=== PATIENT | female | born 1950 | race American Indian/Alaskan Native ===

== ENCOUNTER 2018-10-16 17:31 | Emergency (ER) | payer OTHER ==
--- NOTE | 2018-10-16 18:01 | Event Note ---
ED Screening Note Date of service: 10/16/18 Time: 18:00 ED Screening Note: 68 y/o female comes in complaining of dizziness. BS 110. This initial assessment/diagnostic orders/clinical plan/treatment(s) is/are subject to change based on patients health status, clinical progression and re-assessment by fellow clinical providers in the ED. Further treatment and workup at subsequent clinical providers discretion. Patient/guardian urged not to elope from the ED as their condition may be serious if not clinically assessed and managed. Initial orders include:
[2018-10-16 19:28] LABS: Basophils % (Auto) 0.9 % (0.0-1.8); Eosinophils # (Auto) 0.2 K/mm3 (0.0-0.4); Eosinophils % (Auto) 3.5 % (0.0-4.3); Hematocrit 36.2 % (30.3-42.9); Hemoglobin 12.4 gm/dl (10.1-14.3); Lymphocytes # (Auto) 1.6 K/mm3 (1.2-5.4); Lymphocytes % (Auto) 36.2 % (13.4-35.0); Mean Corpuscular HGB Conc 34 % (30-34); Mean Corpuscular Volume 111 fl (79-97); Monocytes # (Auto) 0.4 K/mm3 (0.0-0.8); Monocytes % (Auto) 8.7 % (0.0-7.3); Platelet Count 287 K/mm3 (140-440); Red Blood Count 3.27 M/mm3 (3.65-5.03); Red Cell Distribution Width 15.8 % (13.2-15.2)
[2018-10-16 19:40] LABS: Alanine Aminotransferase 20 units/L (7-56); Albumin 4.4 g/dL (3.9-5); BUN/Creatinine Ratio 20; Blood Urea Nitrogen 10 mg/dL (7-17); Calcium 9.5 mg/dL (8.4-10.2); Hemolysis Index 7
[2018-10-16 20:14] LABS: Bilirubin,Urine NEG (Negative); Blood,Urine NEG (Negative); Color,Urine Yellow (Yellow); Mucus,Urine FEW /HPF; Urobilinogen,Urine < 2.0 mg/dL (<2.0); WBC,Urine < 1.0 /HPF (0.0-6.0)
[2018-10-16] MEDS ORDERED: CATAPRES PO ONE (20:15)
[2018-10-16] MEDS ORDERED: ANTIVERT PO ONE (20:15)
--- NOTE | 2018-10-16 20:20 | Emergency Department Report ---
HPI - General Chief Complaint: Dizziness Time Seen by Provider: 10/16/18 20:03 - HPI HPI: Room 8 The patient is a 68-year-old female presenting with chief complaint of dizziness. The patient states she has had a left-sided headache for approximately 1 week in addition to pain in her left ear. The patient states today while at a store she began to feel as though everything was spinning. The patient states she sat down and her symptoms began to "calm down." Patient in to the family member home and came to the ED. Patient is to nausea but denies vomiting. Patient denies history of fever. Patient also complains of low back pain with movement for the past 2 weeks. Patient states she feels slightly dizzy now Location: Head, see above Duration: [See above] Quality:, Vertiginous Severity: 01/26 Modifying factors: [see above] Context: [see above] Mode of transportation: The patient drove herself to the emergency department and there are no visitors present ED Past Medical Hx - Past Medical History Previous Medical History?: No Hx Hypertension: Yes Additional medical history: High cholesterol. Acid reflux. Chronic neck pain - Surgical History Additional Surgical History: NECK SURGERY C4C5 - Family History Family history: no significant - Social History Smoking Status: Former Smoker (none 40 years) Substance Use Type: None (denies illicit drug use) - Medications Home Medications: Home Medications Medication Instructions Recorded Confirmed Last Taken Type Aspirin EC 81 mg PO QDAY #30 tablet. 01/28/14 Unknown Rx Lisinopril [Zestril TAB] 40 mg PO QDAY #30 tablet 01/28/14 Unknown Rx Omeprazole Magnesium [Prilosec Otc] 20 mg PO QDAY #30 tablet. 01/28/14 Unknown Rx Pravastatin [Pravachol] 20 mg PO QHS #30 tablet 01/28/14 Unknown Rx Aspirin [Aspirin BABY CHEW TAB] 81 mg PO QDAY #30 tab.chew 05/22/15 Unknown Rx Omeprazole Magnesium [PriLOSEC Otc] 20 mg PO QDAY #30 tablet. 05/22/15 Unknown Rx Pravastatin [Pravachol] 20 mg PO QHS #30 tablet 05/22/15 Unknown Rx Cyclobenzaprine [Flexeril] 10 mg PO TID PRN #15 tablet 01/01/16 Unknown Rx Lisinopril [Zestril TAB] 40 mg PO QDAY #30 tablet 01/01/16 Unknown Rx traMADol [Ultram 50 MG tab] 50 mg PO Q4HR PRN #20 tablet 01/01/16 Unknown Rx HYDROcodone/APAP 5-325 [[place] 1 - 2 each PO Q6HR PRN #14 tablet 10/16/18 Unknown Rx 5/325] Meclizine [Antivert] 25 mg PO TID PRN #20 tablet 10/16/18 Unknown Rx amLODIPine [Norvasc] 5 mg PO DAILY #90 tab 10/16/18 Unknown Rx ED Review of Systems ROS: Stated complaint: DIZZY/LT EAR PAIN/RAPID HEART BEAT Other details as noted in HPI Constitutional: denies: fever Eyes: denies: eye pain ENT: denies: throat pain Respiratory: no symptoms reported Cardiovascular: denies: chest pain Endocrine: no symptoms reported Gastrointestinal: nausea. denies: vomiting Genitourinary: denies: dysuria Musculoskeletal: back pain Neurological: headache, vertigo Physical Exam - Physical Exam Vital Signs: Vital Signs 10/16/18 10/16/18 17:49 17:52 Temperature 98.5 F Pulse Rate 95 H 82 Respiratory 16 Rate Blood Pressure 222/114 Blood Pressure 215/88 [Right] O2 Sat by Pulse 98 Oximetry Physical Exam: GENERAL: The patient is well-developed well-nourished female lying on stretcher no pain to be in acute distress. [] HEENT: Normocephalic. Atraumatic. Extraocular motions are intact. Patient has moist mucous membranes. No nystagmus noted NECK: Supple. No meningitic signs are noted. Trachea midline CHEST/LUNGS: Clear to auscultation. There is no respiratory distress noted. HEART/CARDIOVASCULAR: Regular. There is no tachycardia. There is no gallop rub or murmur. ABDOMEN: Abdomen is soft, nontender. Patient has normal bowel sounds. There is no abdominal distention. SKIN: There is no rash. There is no edema. There is no diaphoresis. NEURO: The patient is awake, alert, and oriented. The patient is cooperative. The patient has no focal neurologic deficits. The patient has normal speech. Cranial nerves II through XII grossly intact, no drift. No dysmetria noted within her to nose bilaterally MUSCULOSKELETAL: There is no evidence of acute injury. ED Course Vital Signs 10/16/18 10/16/18 17:49 17:52 Temperature 98.5 F Pulse Rate 95 H 82 Respiratory 16 Rate Blood Pressure 222/114 Blood Pressure 215/88 [Right] O2 Sat by Pulse 98 Oximetry - Reevaluation(s) Reevaluation #1: 10/16/18 22:20 Patient states she is feeling improved ED Medical Decision Making - Lab Data Result diagrams: 10/16/18 18:35 10/16/18 18:35 Laboratory Tests 10/16/18 10/16/18 10/16/18 18:07 18:35 18:35 WBC 4.4 L RBC 3.27 L Hgb 12.4 Hct 36.2 MCV 111 H MCH 38 H MCHC 34 RDW 15.8 H Plt Count 287 Lymph % (Auto) 36.2 H [place] % (Auto) 8.7 H Eos % (Auto) 3.5 Baso % (Auto) 0.9 Lymph # 1.6 [place] # 0.4 Eos # 0.2 Baso # 0.0 Seg Neutrophils % 50.7 Seg Neutrophils # 2.3 Sodium 142 Potassium 4.1 Chloride 105.7 Carbon Dioxide 24 Anion Gap 16 BUN 10 Creatinine 0.5 L Estimated GFR > 60 BUN/Creatinine Ratio 20 Glucose 101 H POC Glucose 110 H Calcium 9.5 Total Bilirubin 0.30 AST 23 ALT 20 Alkaline Phosphatase 80 Total Protein 7.5 Albumin 4.4 Albumin/Globulin Ratio 1.4 Urine Color Urine Turbidity Urine pH Ur Specific [place] Urine Protein Urine Glucose (UA) Urine Ketones Urine Blood Urine Nitrite Urine Bilirubin Urine Urobilinogen Ur Leukocyte Esterase Urine WBC (Auto) Urine RBC (Auto) U Epithel Cells (Auto) Urine Mucus 10/16/18 20:00 WBC RBC Hgb Hct MCV MCH MCHC RDW Plt Count Lymph % (Auto) [place] % (Auto) Eos % (Auto) Baso % (Auto) Lymph # [place] # Eos # Baso # Seg Neutrophils % Seg Neutrophils # Sodium Potassium Chloride Carbon Dioxide Anion Gap BUN Creatinine Estimated GFR BUN/Creatinine Ratio Glucose POC Glucose Calcium Total Bilirubin AST ALT Alkaline Phosphatase Total Protein Albumin Albumin/Globulin Ratio Urine Color Yellow Urine Turbidity Slightly-cloudy Urine pH 6.0 Ur Specific [place] 1.026 Urine Protein 30 mg/dl Urine Glucose (UA) Neg Urine Ketones Neg Urine Blood Neg Urine Nitrite Neg Urine Bilirubin Neg Urine Urobilinogen < 2.0 Ur Leukocyte Esterase Neg Urine WBC (Auto) < 1.0 Urine RBC (Auto) 3.0 U Epithel Cells (Auto) 5.0 Urine Mucus Few - EKG Data -: EKG Interpreted by Me EKG shows normal: sinus rhythm Rate: normal - EKG Data Interpretation: other (single PVC. No ischemic changes seen) - Radiology Data Radiology results: report reviewed (CT head), image reviewed (CT head, lumbar spine x-ray, sacral coccyx x-ray) interpreted by me: lumbar spine x-ray- no acute fracture seen sacral coccyx x-ray- no acute fracture [facility] [address] [place] [address] Cat Scan Report Signed Patient: EVA POST MR#: [id number] : 1950 Acct:[id number] Age/Sex: 68 / F ADM Date: 10/16/18 Loc: ED Att ending Dr: Ordering Physician: GARTH COCHRAN MD Date of Service: 10/16/18 Procedure(s): CT head/brain wo con Accession Number(s): [id number] cc: GARTH COCHRAN MD PROCEDURE: CT HEAD/BRAIN WO CON TECHNIQUE: Computerized tomography of the head was performed without contrast material. HISTORY: hypertension, headache, vertigo COMPARISONS: Prior CT scan of the brain 05/22/2015 . FINDINGS: Brain: There is no evidence of intracranial hemorrhage. No parenchymal hemorrhage is seen. No mass lesions or mass effect is identified. No abnormal extra-axial fluid collections or masses are seen. There is some decreased density seen in the periventricular white matter without mass effect. This is fairly symmetric and does not exhibit any mass effect consistent with gliosis probably on the basis of microvascular disease or white matter changes of aging. Ventricles: The ventricles, sulcal pattern and fissures are prominent consistent with atrophy. Bone Windows: No evidence of fracture. Paranasal sinuses: Visualized portions are clear. Mastoid air cells: Clear. IMPRESSION: No acute abnormalities identified. There is evidence of mild atrophy and gliosis. This document is electronically signed by Wenceslao Byrd MD., October 16 2018 09:37:58 PM ET Transcribed By: DFN Dictated By: WENCESLAO BYRD MD Electronically Authenticated By: WENCESLAO BYRD MD Signed Date/Time: 10/16/182139 DD/ 09 TD/TT: 10/16/182109 - Differential Diagnosis hypertensive urgency, CH, vertigo Critical care attestation.: If time is entered above; I have spent that time in minutes in the direct care of this critically ill patient, excluding procedure time. ED Disposition Clinical Impression: Uncontrolled hypertension, Vertigo Disposition: - TO HOME OR SELFCARE Is pt being admited?: No Does the pt Need Aspirin: No Condition: Stable Instructions: Hypertension (ED), Vertigo (ED) Additional Instructions: Return to the emergency department immediately should you develop worsening symptoms, fever, inability to tolerate food or liquid or any other concerns. Prescriptions: Meclizine [Antivert] 25 mg PO TID PRN #20 tablet PRN Reason: Vertigo HYDROcodone/APAP 5-325 [[place] 5/325] 1 - 2 each PO Q6HR PRN #14 tablet PRN Reason: Pain amLODIPine [Norvasc] 5 mg PO DAILY #90 tab Referrals: MONICA FINE MD [Primary Care Provider] - 3-5 Days (Dr. Fine is a primary physician. Please follow up with him to be established as a patient) MICHAEL ROSADO MD [Staff Physician] - 3-5 Days (Dr. Rosado is an professor of journalism (ear nose and throat doctor). Please follow up with her for further evaluation) Time of Disposition: 22:22
--- NOTE | 2018-10-16 21:40 | Cat Scan Report ---
PROCEDURE: CT HEAD/BRAIN WO CON TECHNIQUE: Computerized tomography of the head was performed without contrast material. HISTORY: hypertension, headache, vertigo COMPARISONS: Prior CT scan of the brain 05/22/2015 . FINDINGS: Brain: There is no evidence of intracranial hemorrhage. No parenchymal hemorrhage is seen. No mass lesions or mass effect is identified. No abnormal extra-axial fluid collections or masses are seen. There is some decreased density seen in the periventricular white matter without mass effect. This i s fairly symmetric and does not exhibit any mass effect consistent with gliosis probably on the basis of microvascular disease or white matter changes of aging. Ventricles: The ventricles, sulcal pattern and fissures are prominent consistent with atrophy. Bone Windows: No evidence of fracture. Paranasal sinuses: Visualized portions are clear. Mastoid air cells: Clear. IMPRESSION: No acute abnormalities identified. There is evidence of mild atrophy and gliosis. This document is electronically signed by Wenceslao Huddleston MD., October 16 2018 09:37:58 PM ET
[2018-10-16] MEDS ORDERED: TORADOL IM ONE (22:02)
[2018-10-16 22:21] VITALS: BP 166/91
--- NOTE | 2018-10-16 22:32 | XRay Report ---
PROCEDURE: XR SPINE SACRUM/COCCYX 2+V HISTORY: low back pain FINDINGS: AP and lateral views of the sacrum and coccyx were acquired. No fracture is seen in the sac rum or coccyx. No destructive lesion is identified. IMPRESSION: No fracture is seen in the sacrum or coccyx This document is electronically signed by Eligio Olivares MD., October 16 2018 10:30:50 PM ET
--- NOTE | 2018-10-16 22:33 | XRay Report ---
PROCEDURE: XR SPINE LUMBOSACRAL 2-3V HISTORY: low back pain FINDINGS: AP and lateral views of the lumbar spine were acquired. There is 0.4 cm degenerative yousif listhesis of L4 on L5. No fracture is seen in the lumbar spine. The intervertebral disc space heights appear preserved. IMPRESSION: Grade 1 degenerative anterolisthesis of L4 on L5 No fracture is seen in the lumbar spine This document is electronically signed by Eligio Olivares MD., October 16 2018 10:31:46 PM ET
== END 2018-10-16 22:45 | disposition home or self-care (01) ==
LOC: ED 17:31
DX: I10 Essential (primary) hypertension (principal); R42 Dizziness and giddiness; E78.00 Pure hypercholesterolemia, unspecified; G89.29 Other chronic pain; M54.2 Cervicalgia; Z87.891 Personal history of nicotine dependence; Z79.82 Long term (current) use of aspirin; Z79.899 Other long term (current) drug therapy
CPT/HCPCS: 36415; 70450; 72100; 72220; 80053; 81001; 82962; 85025; 93005; 93010; 96372; 99284; J1885; 99285

== ENCOUNTER 2019-01-13 18:31 | Emergency (ER) | payer OTHER ==
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
[2019-01-13] MEDS ORDERED: NAPROXEN 500 MG TAB PO ONE (21:21)
[2019-01-13] MEDS ORDERED: tiZANidine TAB 4 MG TAB PO ONE (21:21)
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
[2019-01-13] MEDS ORDERED: KETOROLAC 30 MG/1 ML INJ IM ONE (22:42)
[2019-01-13 23:49] VITALS: BP 151/81
== END 2019-01-13 22:55 | disposition home or self-care (01) ==
LOC: ED 18:31
DX: M54.2 Cervicalgia (principal); M54.5 Low back pain; R51 Headache; E78.00 Pure hypercholesterolemia, unspecified; I10 Essential (primary) hypertension; V89.2XXA Person injured in unspecified motor-vehicle accident, traffic, initial encounter; Y93.89 Activity, other specified; Y92.410 Unspecified street and highway as the place of occurrence of the external cause; Y99.8 Other external cause status
CPT/HCPCS: 72040; 72070; 72100

== ENCOUNTER 2021-09-29 12:57 | Outpatient (CLI) | payer MEDICARE ==
--- NOTE | 2021-09-29 15:44 | XRay Report ---
Left knee 3 views INDICATION: Pain FINDINGS: Advanced tricompartmental degenerative change. Significant joint space narrowing is seen th roughout with marginal osteophytes. Advanced chondrosis and cartilage loss in the medial compartment Signer Name: Cipriano Barksdale MD Signed: 09/29/2021 3:39 PM Workstation Name: [id number]-[employer]
== END 2021-09-29 12:58 | disposition home or self-care (01) ==
LOC: XRAY 12:57
PROVIDERS: ATTEND Internal Medicine
DX: M17.12 Unilateral primary osteoarthritis, left knee (principal); M25.762 Osteophyte, left knee

== ENCOUNTER 2021-10-07 00:34 | Emergency (ER) | payer MEDICARE ==
[2021-10-07 00:40] VITALS: BP 150/91
== END 2021-10-07 11:35 | disposition left against medical advice (07) ==
LOC: ED 00:34
DX: R51.9 Headache, unspecified (principal); Z53.21 Procedure and treatment not carried out due to patient leaving prior to being seen by health care provider

== ENCOUNTER 2021-12-25 08:22 | Inpatient (IN) | payer OTHER, MEDICARE ==
[2021-12-23 12:26] LABS: Hematocrit 39.3 % (30.3-42.9); Hemoglobin 13.2 gm/dl (10.1-14.3); Mean Corpuscular HGB Conc 34 % (30-34); Mean Corpuscular Volume 92 fl (79-97); Platelet Count 237 K/mm3 (140-440); Red Blood Count 4.26 M/mm3 (3.65-5.03); Red Cell Distribution Width 16.1 % (13.2-15.2)
[2021-12-23 12:38] LABS: Blood Urea Nitrogen 11 mg/dL (7-17); Calcium 9.7 mg/dL (8.4-10.2); Hemolysis Index 2
[2021-12-23 12:42] LABS: BUN/Creatinine Ratio 22
--- NOTE | 2021-12-23 12:50 | Anesthesia Consultation ---
Anesthesia Consult and Med Hx Date of service: 12/25/21 - Airway Anesthetic Teeth Evaluation: Poor, Chipped (Missing) ROM Head & Neck: Adequate (S/P ACDF) Mental/Hyoid Distance: Adequate Mallampati Class: Class II Intubation Access Assessment: Good - Pre-Operative Health Status ASA Pre-Surgery Classification: ASA3 Proposed Anesthetic Plan: General (Pt req) Nerve Block: AC - Pulmonary Hx Smoking: No Hx Sleep Apnea: No - Cardiovascular System Hx Hypertension: Yes Hx Pacemaker: No Hx Internal Defibrillator: No - Central Nervous System Hx Back Pain: Yes (Spinal stenosis) Hx Psychiatric Problems: Yes (Anxiety) - Gastrointestinal Hx Gastroesophageal Reflux Disease: No - Hematic Hx Anemia: Yes (PAst hx) Hx Sickle Cell Disease: No - Other Systems Hx Cancer: No Hx Obesity: Yes - Additional Comments Anesthesia Medical History Comments: Pt had ECHO and NST last year and reports they are normal. Will attempt to get copies. Possible lupus
[~2021-12-25 08:22] MED LIST: ACETAMINOPHEN 500 MG TAB PO ONE; BUPIVACAINE/PF (0.5%) 5 MG/1 ML 10 ML VIAL INFILTRATI ONE; CELECOXIB 200 MG CAP PO NR; GABAPENTIN 300 MG CAP PO NR; KETOROLAC 30 MG/1 ML INJ ONE; MAGNESIUM OXIDE 400 MG TAB PO ONE; MIDAZOLAM 2 MG/2 ML INJ IV NR; MORPHINE 10 MG/1 ML INJ ONE; SODIUM CHLORIDE 0.9% 100 ML ONE; SODIUM CHLORIDE 0.9% 50 ML ONE; TRANEXAMIC ACID 1,000 MG/10 ML ONE; fentaNYL 100 MCG/2 ML INJ IV ONE
[2021-12-25] MEDS: LACTATED RINGERS 1,000 ML IV SCH ×2 (09:30→15:50)
[2021-12-25] MEDS ORDERED: MAGNESIUM OXIDE 400 MG TAB PO ONE (09:30)
[2021-12-25] MEDS ORDERED: ACETAMINOPHEN 500 MG TAB ONE (09:30)
[2021-12-25] MEDS ORDERED: fentaNYL 100 MCG/2 ML INJ ONE ×2 (09:31→10:59)
[2021-12-25] MEDS ORDERED: dexAMETHasone 4 MG/ML VIAL ONE (10:32)
[2021-12-25] MEDS ORDERED: BUPIVACAINE/PF (0.25%) 2.5 MG/ML 30 ML VIAL INFILTRATI ONE (10:32)
[2021-12-25] MEDS ORDERED: HYDROmorphone 0.5 MG/0.5 ML INJ IV PRN ×2 (10:53)
--- NOTE | 2021-12-25 10:53 | Anesthesia Day of Surgery ---
Anesthesia Day of Surgery - Day of Surgery Patient Examined: Yes Patient H&P Reviewed: Yes Patient is NPO: Yes Cardiac Clearance: Yes
[2021-12-25] MEDS ORDERED: LIDOCAINE MPF (2%) 20 MG/1 ML VIAL 5 ML ONE (10:58)
[2021-12-25] MEDS ORDERED: propofoL 200 MG/20 ML VIAL IV ONE (10:59)
[2021-12-25] MEDS ORDERED: VANCOMYCIN 1,250 MG in SODIUM CHLORIDE 0.9% 250ML 250 ML IV ONE (11:00)
[2021-12-25] MEDS ORDERED: VANCOMYCIN/NS 1 GM/250 ML 1 GM/250 ML BAG IV NR (11:00)
[2021-12-25] MEDS ORDERED: ONDANSETRON 4 MG/2 ML INJ IV PRN ×2 (11:24→11:30)
[2021-12-25] MEDS ORDERED: KETAMINE/STERILE WATER 50 MG/ML SYRINGE ONE (12:23)
[2021-12-25] MEDS ORDERED: HYDROmorphone 0.5 MG/0.5 ML INJ ONE (12:47)
[2021-12-25] MEDS ORDERED: MORPHINE 10 MG/1 ML INJ IV ONE (12:49)
[2021-12-25] MEDS ORDERED: KETOROLAC 30 MG/1 ML INJ IV ONE (12:49)
[2021-12-25] MEDS ORDERED: SODIUM CHLORIDE 0.9% 50 ML VIAL IV ONE (12:50)
[2021-12-25] MEDS ORDERED: BUPIVACAINE/PF (0.5%) 5 MG/1 ML 10 ML VIAL INFILTRATI ONE (12:53)
[2021-12-25] MEDS ORDERED: SODIUM CHLORIDE 0.9% IRRIG SOLN 2000 ML IR ONE (12:53)
[2021-12-25] MEDS ORDERED: TRANEXAMIC ACID 1,000 MG/10 ML ONE (13:07)
--- NOTE | 2021-12-25 13:33 | Procedure Note ---
Date of procedure: 12/25/21 Pre-op diagnosis: Severe arthritis left knee Post-op diagnosis: same Procedure: Left total knee replacement Procedure The patient was brought to the OR after being given a obturator nerve block and preoperative holding she was placed on the OR table supine position following induction elevation of anesthesia the patient is left lower extremity was prepped and draped in the usual sterile manner. A timeout procedure was done to identify the patient in the correct operative site. The leg was flexed passed 90 degrees using leg edwards next a midline incision was made over the patella was taken down distally towards the tibial tubercle next the medial retinaculum was incised and the patella was inverted examination of the patient's knee joint revealed typical osteoarthritic changes with large bone spurs noted primarily in the medial compartment both the femoral and tibial's articular surfaces exhibited bare bone and large peripheral osteophytes next a large drill bit was used to enter the medullary canal this was followed by placement of the distal femoral cutting Jig the distal femur was resected approximately 8-9 mm of bone was removed at this time. Attention was turned to the patient's proximal tibia using a external alignme guide the bone was cut using the medial surface as the low point of care was taken to protect the medial collateral ligaments the tibial articular surface was then sized and a #4 tibial based ray was selected this was followed by placement of the fixation hole or keel into the proximal tibial artery medullary canal. Attention was turned to the distal femur and using a 4 and 1 cutting block a # 3 component was selected AP anterior and posterior as well as Castaneda cuts were made a +3 tibial ostomy femoral component was placed and the knee was then taken to a range of motion she appeared to have stability in both the flexion and extension FOLLOWING this the trial components were removed the knee was then copiously irrigated any remaining soft tissue and bony debris were removed at this time next the cement was next and following this the tibial components were inserted beginning with the based ray followed by the polyethylene insert The femoral component was added the excess were removed the knee was held in extension until the cement hardened following hardening of cement the knee was then brought back into of flexion any remaining soft tissue and bony debris were removed at this time. The wound again was irrigated and was closed in a standard routine fashion. Dressings were applied the patient tolerated the procedure there were no complications she was then taken to post anesthesia recovery Anesthesia: MAC, regional Surgeon: LISE XIONG (Sergio Middleton, 1st assist) Estimated blood loss: other (250 cc) Pathology: none Condition: stable Disposition: PACU
--- NOTE | 2021-12-25 16:35 | XRay Report ---
LEFT KNEE 2 VIEWS INDICATION: post op.left knee replacement. COMPARISON: 09/29/2021 IMPRESSION: Recent left knee arthroplasty changes are evident. The hardware appears well applied wi th anatomic alignment at the joint space. Signer Name: Jignesh Mcknight Jr, MD Signed: 12/25/2021 4:31 PM Workstation Name: [id number]
--- NOTE | 2021-12-25 16:54 | Post Anesthesia Evaluation ---
- Post Anesthesia Evaluation Patient Participated: Yes Airway Patent: Yes Stable Respiratory Function: Yes Nausea/Vomiting: No Temp > 96.8F: Yes Pain Manageable: Yes Adequeate Hydration: Yes Anesthesia Complications: No Block Receding Appropriately: Yes Patient on Ventilator: No
[2021-12-25] MEDS: IBUPROFEN 600 MG TAB PO PRN (22:35)
[2021-12-26] MEDS ORDERED: VANCOMYCIN/NS 1 GM/250 ML 1 GM/250 ML BAG IV SCH
[2021-12-26] MEDS: KETOROLAC 30 MG/1 ML INJ IV PRN (00:09)
[2021-12-26] MEDS: MORPHINE 2 MG/1 ML INJ IV PRN (00:19)
[2021-12-26] MEDS: IBUPROFEN 600 MG TAB PO PRN (04:00)
[2021-12-26] MEDS: MORPHINE 4 MG/1 ML INJ IV PRN ×3 (08:53→20:16)
[2021-12-26] MEDS: LACTATED RINGERS 1,000 ML IV SCH (08:55)
[2021-12-26] MEDS: ENOXAPARIN 40 MG/0.4 ML INJ SUB-Q SCH (09:02)
[2021-12-26 10:06] LABS: Hematocrit 32.7 % (30.3-42.9); Hemoglobin 10.3 gm/dl (10.1-14.3)
--- NOTE | 2021-12-26 12:49 | Progress Note ---
Assessment and Plan s/p left TKR doing well continue PT and rehab.... Subjective Date of service: 12/26/21 Interval history: c/o incisional pain otherwise ok, PT started... Objective Vital signs: Vital Signs - 12hr 12/26/21 08:53 Respiratory 20 Rate Incision: clean and dry Weight bearing status: as tolerated - Labs CBC & BMP: 12/26/21 09:26 12/23/21 06:00
[2021-12-27] MEDS: KETOROLAC 30 MG/1 ML INJ IV PRN (00:25)
[2021-12-27] MEDS: IBUPROFEN 600 MG TAB PO PRN ×2 (04:23→14:28)
[2021-12-27] MEDS: ENOXAPARIN 40 MG/0.4 ML INJ SUB-Q SCH (09:42)
[2021-12-27] MEDS: MORPHINE 2 MG/1 ML INJ IV PRN ×3 (09:47→22:43)
--- NOTE | 2021-12-27 14:25 | Progress Note ---
Assessment and Plan s/p left TKR doing well continue PT and rehab.... Subjective Date of service: 12/27/21 Interval history: c/o incisional pain otherwise ok, PT started... Objective Vital signs: Vital Signs - 12hr 12/27/21 12/27/21 12/27/21 04:44 09:47 10:05 Temperature 98.3 F 98.4 F Pulse Rate 88 90 Respiratory 18 18 20 Rate Blood Pressure 143/69 142/72 O2 Sat by Pulse 97 94 Oximetry 12/27/21 10:17 Temperature Pulse Rate Respiratory Rate Blood Pressure O2 Sat by Pulse 96 Oximetry Incision: clean and dry Weight bearing status: as tolerated - Labs CBC & BMP: 12/26/21 09:26 12/23/21 06:00
[2021-12-28] MEDS: IBUPROFEN 600 MG TAB PO PRN ×3 (04:25→22:43)
[2021-12-28] MEDS: ENOXAPARIN 40 MG/0.4 ML INJ SUB-Q SCH (09:29)
[2021-12-28] MEDS: MORPHINE 2 MG/1 ML INJ IV PRN ×2 (09:29→16:48)
[2021-12-29] MEDS: MORPHINE 2 MG/1 ML INJ IV PRN ×2 (05:07→09:43)
[2021-12-29] MEDS: ENOXAPARIN 40 MG/0.4 ML INJ SUB-Q SCH (09:32)
--- NOTE | 2021-12-29 13:32 | Discharge Summary ---
Providers - Providers Date of Admission: 12/25/21 08:22 Date of discharge: 12/29/21 Attending physician: LISE XIONG MD 12/25/21 11:24 Consult to Case Management [CONS] Routine Services Needed at Discharge: Other Notified:: yes Additional Physician Instructions: Assess Discharge needs. Physical Therapy Evaluation and Treat [CONS] Routine Comment: Reason For Exam: Eval and Treat 12/26/21 12:53 Occupational Therapy Evaluate and Treat [CONS] Routine Comment: Reason For Exam: eval and treat Primary care physician: ALBERTO HEWITT Hospitalization Disposition: 30 STILL A PATIENT Exam - Constitutional Vitals: Temp Pulse Resp BP Pulse Ox 97.6 F 81 16 154/77 98 12/29/21 04:29 12/29/21 04:29 12/29/21 04:29 12/29/21 04:29 12/29/21 04:29 Plan Follow up with: ALBERTO HEWITT MD [Primary Care Provider] - 7 Days Prescriptions: Apixaban [Eliquis] 5 mg PO DAILY #30 Oxycodone HCl/Acetaminophen [Percocet 10/325 mg] 1 each PO Q6HR PRN #30 PRN Reason: Pain
[2021-12-29] MEDS: SERTRALINE 50 MG TAB PO SCH (13:58)
[2021-12-29] MEDS: IBUPROFEN 600 MG TAB PO PRN ×2 (15:15→22:44)
[2021-12-30] MEDS: MORPHINE 2 MG/1 ML INJ IV PRN (02:10)
[2021-12-30 05:02] VITALS: BP 147/71
[2021-12-30] MEDS: SERTRALINE 50 MG TAB PO SCH (09:09)
[2021-12-30] MEDS: IBUPROFEN 600 MG TAB PO PRN (09:09)
[2021-12-30] MEDS: ENOXAPARIN 40 MG/0.4 ML INJ SUB-Q SCH (09:09)
== END 2021-12-30 09:10 | disposition home health service (06) | DRG 470 ==
LOC: 3A 08:22
PROVIDERS: ADMIT Orthopaedic Surgery; ATTEND Orthopaedic Surgery
PROC: 0SRD0J9 Replacement of Left Knee Joint with Synthetic Substitute, Cemented, Open Approach (ICD-10-PCS; principal; 2021-12-25)
DX: M17.12 Unilateral primary osteoarthritis, left knee (principal); I10 Essential (primary) hypertension; Z20.822 Contact with and (suspected) exposure to COVID-19; F41.9 Anxiety disorder, unspecified; Z88.0 Allergy status to penicillin
CPT/HCPCS: 36415; 64450; 80048; 85014; 85018; 85027; 88304; 88311; G0378; J3490; C1713; C1776; J1100; J1170; J1650; J1885; J2250; J2270; J2704; J3010; J3370; J7120; U0003